=== PATIENT | male | born 1980 | race Caucasian/White ===

== ENCOUNTER 2018-03-17 11:48 | Emergency (ER) | END 2018-03-17 13:44 | disposition home or self-care (01) ==

== ENCOUNTER 2018-11-28 17:46 | Emergency (ER) | payer MEDICAID, OTHER ==
[~2018-11-28] VITALS: Ht 165.1 cm; Wt 78.0 kg
[~2018-11-28 17:46] MED LIST: CEPH-443 PO; ELIM TOP; HYDR-842 PO; ONDA4TAB8 PO
[2018-11-28 17:52] VITALS: Ht 165.1 cm; Wt 78.0 kg
[2018-11-28] MEDS ORDERED: morphine 2 MG INJ IV STA (19:51)
[2018-11-28] MEDS ORDERED: ONDANSETRON 4 MG INJ IV STA (19:51)
[2018-11-28] MEDS ORDERED: SOD CHLORIDE 0.9% 1,000 ML IV STA (19:51)
--- NOTE | 2018-11-28 21:42 | ERD ---
ER Documentation Chief Complaint Chief Complaint AP X 2 DAYS HPI This is a 38-year-old male with nonsignificant past medical history presents ED with complaints of diffuse abdominal pain x2 days. Patient states that the pain is intermittent but has becoming more frequently in the past day. Denies fevers, chills, nausea, vomiting, diarrhea, constipation, melena, hematochezia, hematemesis, chest pain, shortness breath, trouble breathing, dysuria, hematuria. Patient does admit to some dark-colored urine. No known drug allergies. Admits to history of methamphetamine dependence but has been clean for 8 months. ROS All systems reviewed and are negative except as per history of present illness. Medications Home Meds Active Scripts Permethrin* (Elimite*) 5% Cr, 1 APPLIC TOP ONCE, #1 TUB Prov:MICH MOROCHO PA-C 03/17/18 Ondansetron Hcl* (Zofran*) 4 Mg Tablet, 4 MG PO Q6H for NAUSEA AND/OR VOMITING, #30 TAB Prov:MICH MOROCHO PA-C 03/17/18 Cephalexin* (Keflex*) 500 Mg Capsule, 500 MG PO QID for 7 Days, CAP Prov:MICH MOROCHO PA-C 03/17/18 Hydroxyzine Hcl* (Atarax*) 25 Mg Tab, 25 MG PO Q6H PRN for ITCHING for 5 Days, TAB Prov:MICH MOROCHO PA-C 03/17/18 Allergies Allergies: Coded Allergies: No Known Allergy (Unverified , 03/17/18) PMhx/Soc History of Surgery: No Anesthesia Reaction: No Hx Neurological Disorder: No Hx Respiratory Disorders: No Hx Cardiac Disorders: Yes (heart murmur) Hx Psychiatric Problems: No Hx Miscellaneous Medical Probl: No Hx Alcohol Use: Yes Hx Substance Use: No Hx Tobacco Use: Yes Smoking Status: Current every day smoker Physical Exam Vitals Vital Signs Date Temp Pulse Resp B/P (MAP) Pulse Ox O2 O2 Flow FiO2 Time Delivery Rate 11/28/18 98.1 64 18 145/64 99 17:52 (91) Physical Exam Physical Exam Vitals signs: Reviewed by me. General: Well developed, well nourished, in no acute distress. Patient is awake and alert. Head: Normocephalic, atraumatic. Eyes: Normal conjunctiva, Pupils PERRLA, EOM intact grossly ENT: Pharynx is clear, Moist mucous membranes, external ears, nose and mouth normal Neck: Supple, no masses, lymphadenopathy or JVD Respiratory: Clear to auscultation bilaterally with no wheezing, rhonchi, rales, no distress Cardiovascular: RRR, no murmurs, rubs, or gallops Abdominal: Soft, nondistended, no peritoneal signs, no rigidity, no surgical abdomen, bowel sounds present all 4 quadrants, mild tenderness palpation IN LOWER ABDOMEN, MURPHYS SIGN NEG : Deferred MSK: No edema, no unilateral swelling, 5/5 strength Back: No midline tenderness. No flank tenderness Neurologic: Alert and oriented, moving all extremities, normal speech, no focal weakness, no cerebellar signs. Normal mentation Skin: warm and dry, No rash Psych: Normal mood Result Diagram: 11/28/18200811/28/182008 Results 24 hrs Laboratory Tests Test 11/28/18 20:09 White Blood Count 7.0 10^3/ul Red Blood Count 4.83 10^6/ul Hemoglobin 13.9 g/dl Hematocrit 42.4 % Mean Corpuscular Volume 87.8 fl Mean Corpuscular Hemoglobin 28.8 pg Mean Corpuscular Hemoglobin Concent 32.8 g/dl Red Cell Distribution Width 12.6 % Platelet Count 227 10^3/UL Mean Platelet Volume 9.9 fl Immature Granulocytes % 0.100 % Neutrophils % 52.1 % Lymphocytes % 33.9 % Monocytes % 12.5 % Eosinophils % 1.1 % Basophils % 0.3 % Nucleated Red Blood Cells % 0.0 /100WBC Immature Granulocytes # 0.010 10^3/ul Neutrophils # 3.6 10^3/ul Lymphocytes # 2.4 10^3/ul Monocytes # 0.9 10^3/ul Eosinophils # 0.1 10^3/ul Basophils # 0.0 10^3/ul Nucleated Red Blood Cells # 0.0 10^3/ul Urine Color MIKALA Urine Clarity CLEAR Urine pH 5.0 Urine Specific [place] 1.038 Urine Ketones 2+ mg/dL Urine Nitrite NEGATIVE mg/dL Urine Bilirubin NEGATIVE mg/dL Urine Urobilinogen 1+ mg/dL Urine Leukocyte Esterase NEGATIVE Cecile/ul Urine Microscopic RBC 4 /HPF Urine Microscopic WBC 2 /HPF Urine Mucus MANY /HPF Urine Hemoglobin NEGATIVE mg/dL Urine Glucose NEGATIVE mg/dL Urine Total Protein 1+ mg/dl Sodium Level 140 mmol/L Potassium Level 4.0 mmol/L Chloride Level 102 mmol/L Carbon Dioxide Level 29 mmol/L Anion Gap 9 Blood Urea Nitrogen 24 mg/dl Creatinine 1.04 mg/dl Est Glomerular Filtrat Rate mL/min > 60 mL/min Glucose Level 78 mg/dl Calcium Level 9.2 mg/dl Total Bilirubin 2.1 mg/dl Direct Bilirubin 0.00 mg/dl Indirect Bilirubin 2.1 mg/dl Aspartate Amino Transf (AST/SGOT) 38 IU/L Alanine Aminotransferase (ALT/SGPT) 37 IU/L Alkaline Phosphatase 72 IU/L Creatine Kinase 324 IU/L Total Protein 7.6 g/dl Albumin 4.4 g/dl Globulin 3.20 g/dl Albumin/Globulin Ratio 1.37 Lipase 75 U/L Current Medications Medications Dose Sig/Kel Start Time Status Last (Trade) Ordered Route PRN Stop Time Admin Dose Reason Admin Sodium 1,000 ml @ Q1H STAT 11/28/18 DC 11/28/18 Chloride 1,000 mls/hr IV 19:51 20:13 11/28/18 20:50 Morphine 4 mg ONCE STAT 11/28/18 DC 11/28/18 Sulfate IV 19:51 20:19 (morphine) 11/28/18 19:54 Ondansetron 4 mg ONCE STAT 11/28/18 DC 11/28/18 HCl (Zofran IV 19:51 20:13 Inj) 11/28/18 19:54 Procedures/MDM EKG, MONITORS, & DIAGNOSTIC IMAGING: [place] [address] Radiology Main Line: [phone] DIAGNOSTIC IMAGING REPORT Patient: RICARDO CONROY : 1980 Age: 38 Sex: M MR #: [id number] DOS: 11/28/181950 Ordering MD: KEITH BOOKER PA-C Location: E Room/Bed: PROCEDURE: CT Abdomen and Pelvis without contrast. CLINICAL INDICATION: Lower abdominal pain TECHNIQUE: CT scan of the abdomen and pelvis without contrast was performed on a multidetector high-resolution CT scanner. The patient was scanned without intravenous contrast. Coronal and sagittal reformatted images were obtained from the axial source images. Images were reviewed on a high-resolution PACS workstation. The total exam CTDI equals 7.56 mGy and the total exam DLP equals 454.02 mGy-cm. One or more the following dose reduction techniques were utilized: Automated exposure control, adjustment of the mA and / or kV according to patient's size, or use of iterative reconstruction technique. DICOM images are available. COMPARISON: None. FINDINGS: Minimal linear atelectasis/fibrosis at lung bases. No pneumoperitoneum is seen. No abnormalities seen in the liver, gallbladder, spleen, pancreas, adrenals or kidneys. No biliary dilatation is seen. Stomach is not distended. No abdominal aortic aneurysm is seen. Very small umbilical hernia containing fat only. No renal or ureteral stone is seen. No definite abnormality of the low volume bladder seen. No abnormality of the reproductive organs is seen. Small bilateral inguinal hernias containing fat only. There is a small amount of free fluid in the right lower posterior pelvis. There is diffuse wall thickening in the ascending colon and cecum with soft tissue stranding adjacent fat suggestive of colitis. There is appearance of a non-inflamed appendix. No dilated small bowel loops are seen. No enlarged lymph nodes seen in the abdomen or pelvis. Small scattered likely bone islands. IMPRESSION: Diffuse wall thickening in the ascending colon and cecum with soft tissue stranding in the adjacent fat suggesting colitis. Small amount of free fluid in right lower posterior pelvis. Small bilateral inguinal hernias containing fat only. RPTAT: HJES .Live Uriostegui MD, MD Date Time Electronically viewed and signed by .Live Uriostegui MD, MD on 11/28/2018 21:36 .S/ CC: KEITH BOOKER PA-C [phone] LAB INTERPRETATION: CBC shows no evidence of hemorrhage or infection Chemistry shows no evidence of significant electrolyte abnormalities or renal insufficiency, slightly elevated BUN of 24 Liver function test shows mildly elevated total bilirubin 2.1, and direct bilirubin 2.1 Creatinine kinase 324 Lipase shows no evidence of acute pancreatitis Urinalysis shows 1+ protein, 2 WBC, 4 RBCs, no leukocyte esterase no nitrite ER COURSE: The patient was given IV normal saline, morphine, Zofran The medication was well tolerated and the patient reports improvement in symptoms. The patient was stable throughout ED course. I kept the patient and/or family informed of laboratory and diagnostic imaging results throughout the emergency room course. The patient was promptly evaluated and a treatment plan was devised based on H&P and other data. This plan was discussed with the patient who agreed and had no further questions or concerns prior to discharge. MEDICAL DECISION MAKING: This is a 38-year-old male presents ED with complaints of diffuse abdominal pain x2 days. Patient is tender across the diffuse abdomen but is most prevalently tender in the lower abdomen. Patient does have an elevated indirect bilirubin and total bilirubin. Roth sign is negative and there is no elevated transaminases - I doubt gallbladder disease. CT of the abdomen and pelvis shows colitis but is otherwise unremarkable. will treat patient with antibiotics to cover for infectious source. At this time there is no gastrointestinal emergency. No evidence of appendicitis, perforated viscus, small bowel obstruction, volvulus, cholecystitis, cholangitis, pancreatitis, among others. Vitals are stable patient can be managed with close outpatient follow-up. Advised patient follow-up with primary care in the next 48 hours. Return to ED with any worsening symptoms Discussed case with overseeing physician Dr. Samano who agrees with plan of close outpatient follow-up DISPOSITION PLAN: We discussed follow up with the patient's primary care doctor within 24 to 48 hours. Patient counseled regarding my diagnostic impression and care plan. Prior to discharge all questions answered. Pt agrees with treatment plan and understands strict return precautions. Precautionary instructions provided including instructions to return to the ER if not improving or for any worsening or changing symptoms or concerns. SPECIALIST FOLLOW UP RECOMMENDED: None Patient has been advised to follow up with primary care in 1-2 days. Disclaimer: Inadvertent spelling and grammatical errors are likely due to EHR/dictation software use and do not reflect on the overall quality of patient care. Also, please note that the electronic time recorded on this note does not necessarily reflect the actual time of the patient encounter. Departure Diagnosis: Primary Impression: Colitis Additional Impression: Abdominal pain Condition: Stable Patient Instructions: Abdominal Pain Referrals: [facility] Additional Instructions: Patient advised to return to the ED immediately for new or worsening symptoms. Patient advised to follow up with primary care provider in the next 24-48 hours. Patient verbalized understanding and agrees with treatment plan and course of action. If patient has no primary care they may follow up with one of the community clinics listed on the following page or one of the options listed below [facility] [address] [place] [id number] or [facility] [address] [place] [address] or [facility] [address] [place] [address] KEITH BOOKER PA-C Nov 28, 2018 21:41
[2018-11-28] MEDS ORDERED: HYDR-4011 PO (21:55)
[2018-11-28] MEDS ORDERED: CIPR500T4 PO (21:55)
[2018-11-28] MEDS ORDERED: METR500T PO (21:55)
[2018-11-28 22:11] VITALS: BP 108/86; PULSE 60; RESP 18
== END 2018-11-28 22:15 | disposition home or self-care (01) ==
LOC: FTE 17:46
DX: K52.9 Noninfective gastroenteritis and colitis, unspecified (principal); F17.210 Nicotine dependence, cigarettes, uncomplicated
CPT/HCPCS: 36415; 74176; 80053; 81001; 82550; 83690; 85025; 87086; 96361; 96374; 96375; 99285; J2270; J2405; J7030